=== PATIENT | male | born 1975 | race Caucasian/White ===

== ENCOUNTER 2022-02-14 05:47 | Emergency (ER) | payer MEDICAID ==
[~2022-02-14] VITALS: Ht 177.8 cm; Wt 77.1 kg
[2022-02-14] MEDS ORDERED: CLINDAMYCIN PHOSPHATE IV 600 MG in IV DEXTROSE 5% 100 ML IV ONE (07:15)
[2022-02-14] MEDS ORDERED: CLINDAMYCIN 600 MG PIGGYBACK**ER OMNI IV ONE (07:26)
--- NOTE | 2022-02-14 07:43 | NUR ---
18g started on left anterior forearm, flushes with ease, saline locked.
[2022-02-14 08:02] LABS: HEMATOCRIT 37.3 % (36.7-47.1); MEAN CORPUSCULAR HEMOGLOBIN 31.8 uug (23.8-33.4); MEAN CORPUSCULAR VOLUME 89.4 fL (73.0-96.2); PLATELET COUNT (AUTO) 461 K/uL (152-348)
[2022-02-14 08:17] LABS: BILIRUBIN,DIRECT 0.1 mg/dL (0.0-0.2); BILIRUBIN,TOTAL 0.3 mg/dL (0.2-1.0); CREATININE 0.9 mg/dL (0.6-1.3); POTASSIUM 3.9 mmol/L (3.5-5.1); TOTAL PROTEIN, SERUM 7.9 g/dL (6.4-8.2)
[2022-02-14] MEDS ORDERED: CLIN300C3 PO (09:14)
[2022-02-14] MEDS ORDERED: TDAP DIPH,PERTUSS,TET VAC/PF 0.5 ML DISP.SYRIN IM ONE ×3 (09:15→10:23)
--- NOTE | 2022-02-14 09:25 | NUR ---
IV removed. Catheter intact and site benign. Pressure and 4x4 gauze applied to site. No bleeding noted. Tetanus shot was given. Patient is AOx4, and left ER immediately before written discharge papers were created by Dr Chen, + brisk steady gait. notified.
--- NOTE | 2022-02-14 09:27 | NUR ---
Patient was able to get his written discharge papers from Dr Chen.Written and verbal after care instructions given. Patient verbalized understanding and compliance of instructions. Stressed follow up with primary doctor or return to ER for worsening s/s.
== END 2022-02-14 09:27 | disposition home or self-care (01) ==
LOC: ER 05:57
DX: L02.511 Cutaneous abscess of right hand (principal); L03.113 Cellulitis of right upper limb; L98.499 Non-pressure chronic ulcer of skin of other sites with unspecified severity
CPT/HCPCS: 99284; 96374; 80076; 80048; 85025; 87040 ×2; 36415; 73120; 90715; 90471; 83605; J3490; A4663